=== PATIENT | male | born 1970 | race Caucasian/White ===

== ENCOUNTER 2020-11-13 01:14 | Emergency (ER) | payer MEDICAID, SELFPAY ==
[2020-11-13 01:15] VITALS: PULSE 80; RESP 16; TEMP 36.4; O2SAT 96; BMI 33.3
[2020-11-13 01:18] VITALS: BP 158/104
--- NOTE | 2020-11-13 01:35 | ED.DCSUM_ITS ---
- ER Visit Summary Date of Service: 11/13/20 Chief Complaint: Low back pain radiating to his left anterior thigh History of Present Illness: The patient is a 50 M 3 of prior workers comp injury with degenerative disc disease and arthritis to his lower back. He has never had back surgery. He is never had back injections. He denies any fever or chills. He has had no recent trauma. He said over the last month he has had intermittent low back pain. It is now radiating from his back to his anterior thigh. He denies any numbness, tingling or weakness. No bowel or bladder incontinence. No foot drop. He was seen in urgent care earlier today started on oral steroids and muscle relaxants. He said the muscle relaxants are not doing him any good. He said the pain is improved now from what it was earlier today. Physical Examination: Middle-aged male no acute distress accompanied by family. Vital signs stable afebrile. HEENT exam unremarkable. Neck nontender. Lungs clear to auscultation bilaterally. Heart regular rhythm no murmur. Abdomen soft nontender normal bowel sounds no peritoneal signs. Patient moving all 4 extremities. Neurovascularly intact. 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 5 out of 5 dorsi and plantar flexion both feet. Negative straight leg raise bilaterally. No cauda equina. No saddle anesthesia. Normal medial thigh and lower leg sensation. Normal range of motion. Back exam spine is nontender. SI joints are nontender. Test Results: None. Emergency Department Course and Treatment: Patient with acute on chronic low back pain with radiculopathy to his left anterior thigh. Currently his pain is much better. He has no signs of cauda equina or cord compression. Clinically this does sound like its disc disease with a radiculopathy. He will be given 2 [place] here for pain. Currently his pain is mild. Treatment Plan: Continue his current steroids. Motrin also. Follow-up with his primary care physician this week if not improving he may need imaging. He does not need emergent MRI at this time. Disposition: Discharge Impression: Acute on chronic low back pain with radiculopathy. Degenerative disc disease This note was generated with [employer] software. It may contain incorrect words, spelling, and punctuation that were not noted in review of the chart prior to signing ED Disposition - Plan for ED Patient: Referrals: Tomi Chavez MD [Primary Care Provider] -
--- NOTE | 2020-11-13 01:39 | ED.DEP ---
ED Disposition - Plan for ED Patient: Disposition: Home or Assisted Living Instructions: ED Back Pain (Acute or Chronic) Referrals: Tomi Chavez MD [Primary Care Provider] - 3-5 Days if not improving Additional Instructions: Finish your steroids. Motrin and/or Tylenol for pain. Follow-up with your doctor if not improving you may need an MRI of your lower back. Light duty at work if possible.
[2020-11-13] MEDS: HYDROcodone Bitartrate/Apap 5/325 Tablet PO (01:54)
[2020-11-13 02:04] VITALS: BP 145/96; PULSE 77; RESP 15; O2SAT 96
== END 2020-11-13 02:30 | disposition home or self-care (01) ==
PROVIDERS: Emergency Provider Emergency Medicine; PCP Family Medicine
DX: M54.5 Low back pain (principal); M54.10 Radiculopathy, site unspecified; M19.90 Unspecified osteoarthritis, unspecified site; G89.29 Other chronic pain
CPT/HCPCS: 99282

== ENCOUNTER 2020-11-13 18:16 | Emergency (ER) | payer MEDICAID, SELFPAY ==
[2020-11-13 01:15] VITALS: BMI 33.3
[2020-11-13 18:17] VITALS: BP 157/112; PULSE 77; RESP 18; TEMP 36.1; O2SAT 100; BMI 33.1
--- NOTE | 2020-11-13 18:53 | ED.VIS.GEN ---
History of Present Illness Chief Complaint: Back Informant: Patient Narrative: 50-year-old male presenting with back pain. Apparently he has had this previously and has history of bulging disks. He states he was here yesterday and had an exam and was put on steroids and was not given any pain medicine. He states he cannot stand the pain. He has no loss of bladder or bowel control. No acute trauma. Patient has not seen his regular doctor or a specialist. Past Medical History - Allergies and Home Meds Allergies/Adverse Reactions: Allergies No Known Allergies Allergy (Verified 11/13/20 01:15) Primary Care Physician: Tomi Chavez MD [Primary Care Provider] - Prior records reviewed: Yes Past Medical History: None Surgical History: noncontributory Lives: Spouse/ Significant Other Smoking Status: Former smoker Alcohol: None Drugs: None Review of Systems General: Denies: Chills, Fever, Sweats Eyes: Denies: Visual changes - bilaterally, Diplopia ENT: Denies: Rhinorrhea, Sore throat Cardiovascular: Denies: Chest pain, Palpitations Respiratory: Denies: Dyspnea, Cough, Dyspnea on exertion Gastrointestinal: Denies: Abdominal pain, Nausea, Vomiting, Diarrhea, Melena, Hematochezia Genitourinary: Denies: Dysuria, Hematuria, Frequency Musculoskeletal: Reports: Back pain. Denies: Neck pain Skin: Denies: Rash, Wounds Neurological: Denies: Headache, Weakness, Numbness Psych: Denies: Depression, Anxiety Physical Exam Vital Signs/Narrative: Vital Signs Temp Pulse Resp BP Pulse Ox 11/13/20 18:17 97 F L 77 18 157/112 H 100 Inital Vital Signs reviewed: Yes General: Well nourished, No Acute Distress Head: Normocephalic, Atraumatic ENT: Moist mucous membranes, No rhinorrhea Neck: Supple, Nontender Cardiovascular: Regular rate, Regular rhythm Back: - - Tenderness to palpation left lumbar paraspinal musculature. No midline deformities or step-offs.. Negative for: Spinal tenderness Extremities: Nontender, No edema Diagnostic/Tx/Re-eval Clinical Impression(s) from Imaging Studies Lumbar Spine X-Ray 11/13/20 19:00 IMPRESSION: Degenerative changes of the spine, as detailed above. Electronically Signed: Deon Krishnamurthy MD at 20:17 EST , Service support , - Medical Decision Making 40-year-old male with history of back pain currently having acute exacerbation of this states. He states he was here previously and received steroids and cyclobenzaprine. He states this is not helping. Patient was given a 50 mg shot of Toradol and [place] in the ED. X-rays of the lumbar spine are obtained and show no acute process however there are degenerative changes. Radiology does agree. Patient states that his pain is somewhat improved although it is not down to 0. Patient will be Percocet for pain. He was given follow-up with Dr. Mckeon. Patient counseled not to use muscle relaxers in conjunction with the Percocet. Patient acknowledged understanding. Impression: 1. Lumbar strain ED Disposition - Plan for ED Patient: Disposition: Home or Assisted Living Instructions: ED Back Sprain/Strain Prescriptions: Oxycodone HCl/Acetaminophen [Percocet 5/325] 1 tab PO Q6H PRN PRN 3 Days #12 tab PRN Reason: Pain Prescription Printed Referrals: Tomi Chavez MD [Primary Care Provider] -
[2020-11-13] MEDS: Ketorolac 15 MG/ML Vial IM (18:57)
[2020-11-13] MEDS: oxyCODONE 5 MG Tablet PO (18:57)
--- NOTE | 2020-11-13 19:00 | RAD_ITS ---
STUDY: X-RAY - LUMBAR SPINE REASON FOR EXAM: Male, 50 years old. Back Pain TECHNIQUE: 2 view(s) of the lumbar spine were obtained. COMPARISON: None FINDINGS: Normal lumbar lordosis. There is no substantial scoliosis. There is a normal alignment of the vertebrae. Normal vertebral bodies and endplates. Degenerative change with mild spurring. There is facet spurring and sclerosis. There is no demonstrated fracture. The soft tissue structures are unremarkable. RAD/Lumbar Spine 2 or 3 Views IMPRESSION: Degenerative changes of the spine, as detailed above. Electronically Signed: Deon Krishnamurthy MD at 20:17 EST , Service support ,
[2020-11-13 21:15] VITALS: BP 154/77; PULSE 76; RESP 18; O2SAT 96
== END 2020-11-13 21:15 | disposition home or self-care (01) ==
PROVIDERS: Emergency Provider Student in an Organized Health Care Education/Training Program; PCP Family Medicine
DX: S39.012A Strain of muscle, fascia and tendon of lower back, initial encounter (principal); X58.XXXA Exposure to other specified factors, initial encounter; Y93.9 Activity, unspecified; Y92.9 Unspecified place or not applicable; Z87.891 Personal history of nicotine dependence; M54.10 Radiculopathy, site unspecified; M19.90 Unspecified osteoarthritis, unspecified site; G89.29 Other chronic pain
CPT/HCPCS: 72100; 96372; 99282